=== PATIENT | female | born 2000 | race Hispanic/Latino ===

== ENCOUNTER 2024-02-13 12:36 | Emergency (ER) | payer OTHER ==
[2024-02-13 13:26] LABS: Absolute Eosinophils 0.1 K/uL (0-0.5); Absolute Lymphocytes (CBC) 2.3 K/uL (0.7-4.9); Absolute Monocytes 0.8 K/uL (0.1-1.3); Absolute Neutrophil 10.5 K/uL (1.8-8.0); Basophils % 0.3 % (0-1.3); Eosinophils % 0.7 % (0-4.4); Hematocrit 35.1 % (36.0-45.0); Hemoglobin 11.6 g/dL (12.0-15.0); Lymphocytes % 16.9 % (15.3-44.8); MCH 28.7 pg (27.0-35.0); MCV 86.8 fL (80-100); MPV 7.7 fL (7.6-11.3); Monocytes % 5.7 % (3.3-12.3); Neutrophils % 76.4 % (41.7-73.7); Nucleated Red Blood Cells % 0.1 % (0-0); Platelets 446 thou/uL (152-406); RBC Red Blood Cell Count 4.04 M/uL (3.86-4.86); Red Cell Distribution Width 13.2 % (12.1-15.2)
[2024-02-13 13:31] LABS: Specific Gravity 1.007 (1.005-1.030); Urine Bacteria None Seen /HPF (<20); Urine Bilirubin NEGATIVE (Negative); Urine Blood Negative (Negative); Urine Clarity Turbid (Clear); Urine Color Light-Yellow (Yellow); Urine Crystals Unidentified Few /HPF (None Seen); Urine Culture Reflex Order NOT NEEDED; Urine Glucose NEGATIVE (Negative); Urine Ketones NEGATIVE (Negative); Urine Microscopic Reflex YN ORDER UMIC; Urine Nitrite NEGATIVE (Negative); Urine Protein NEGATIVE (Negative); Urine RBC <5 /HPF (None Seen); Urine Urobilinogen Normal (Normal); Urine WBC <5 /HPF (<5); Urine pH 6.5 (5.0-7.0)
[2024-02-13 13:41] LABS: Albumin 2.3 g/dL (3.4-5.0); Albumin/Globulin Ratio 0.5 (1.1-1.8); Anion Gap 10.5 mEq/L (5.0-15.0); Bilirubin Total 0.3 mg/dL (0.2-1.0); Globulin 4.7 g/dL (2.3-3.5); Potassium 3.5 mEq/L (3.5-5.1)
[2024-02-13] MEDS ORDERED: NA CHLORIDE 0.9% 1,000 ML ONE (13:41)
[2024-02-13] MEDS ORDERED: ONDANSETRON 4 MG/2 ML VIAL ONE (13:41)
--- NOTE | 2024-02-13 14:16 | RAD REPORT ---
EXAM DESCRIPTION: US - Abdomen Exam Limited - 02/13/2024 1:41 pm CLINICAL HISTORY: ABD PAIN COMPARISON: <Comparisons> FINDINGS: The gallbladder demonstrates multiple shadowing stones. No pericholecystic fluid or gallbl adder wall thickening. The common bile duct is normal measuring 3-4 mm. The liver demonstrates no findings of intrahepatic biliary dilatation. IMPRESSION: Cholelithiasis.
--- NOTE | 2024-02-13 14:44 | EDPHYS ---
Physician Documentation [facility] Name: Ritesh Guerrero Age: 23 yrs Sex: Female : 2000 Arrival Date: 02/13/2024 Time: 12:36 Bed 1 Private MD: JO ANN Physician Dewey Conklin HPI: 02/12 14:37 This 23 yrs old Female presents to ER via Ambulatory with complaints of jeannette Abdominal Pain, [id number]. 14:37 The patient presents with abdominal pain abdominal distention in the epigastric area, jeannette in the upper abdomen. Onset: The symptoms/episode began/occurred just prior to arrival, this morning. The patient presents to the emergency department with abdominal pain, of the epigastric area. The estimated gestational age is 33 weeks. course: care: at a clinic. Previous pregnancies: in previous pregnancies patient has had vaginal delivery. Associated signs and symptoms: The patient has no apparent associated signs or symptoms. The symptoms do not radiate. 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 - Infectious Disease History:: Denies. - Social history:: Smoking status: Patient denies any tobacco usage or history of. - Family history:: not pertinent. ROS: 14:37 Constitutional: Negative for fever, chills, and weight loss, Eyes: Negative for injury, jeannette pain, redness, and discharge, ENT: Negative for injury, pain, and discharge, Neck: Negative for injury, pain, and swelling, Cardiovascular: Negative for chest pain, palpitations, and edema, Respiratory: Negative for shortness of breath, cough, wheezing, and pleuritic chest pain, Back: Negative for injury and pain, : Negative for injury, bleeding, discharge, and swelling, MS/Extremity: Negative for injury and deformity, Skin: Negative for injury, rash, and discoloration, Neuro: Negative for headache, weakness, numbness, tingling, and seizure, Psych: Negative for depression, anxiety, suicide ideation, homicidal ideation, and hallucinations, Allergy/Immunology: Negative for hives, rash, and allergies, Endocrine: Negative for neck swelling, polydipsia, polyuria, polyphagia, and marked weight changes, Hematologic/Lymphatic: Negative for swollen nodes, abnormal bleeding, and unusual bruising, 14:37 Abdomen/GI: Positive for abdominal pain, abdominal cramps, Exam: 14:37 Constitutional: This is a well developed, well nourished patient who is awake, alert, jeannette and in no acute distress. Head/Face: Normocephalic, atraumatic. Eyes: Pupils equal round and reactive to light, extra-ocular motions intact. Lids and lashes normal. Conjunctiva and sclera are non-icteric and not injected. Cornea within normal limits. Periorbital areas with no swelling, redness, or edema. ENT: Nares patent. No nasal discharge, no septal abnormalities noted. Tympanic membranes are normal and external auditory canals are clear. Oropharynx with no redness, swelling, or masses, exudates, or evidence of obstruction, uvula midline. Mucous membranes moist. Neck: Trachea midline, no thyromegaly or masses palpated, and no cervical lymphadenopathy. Supple, full range of motion without nuchal rigidity, or vertebral point tenderness. No Meningismus. Chest/axilla: Normal chest wall appearance and motion. Nontender with no deformity. No lesions are appreciated. Cardiovascular: Regular rate and rhythm with a normal S1 and S2. No gallops, murmurs, or rubs. Normal PMI, no JVD. No pulse deficits. Respiratory: Lungs have equal breath sounds bilaterally, clear to auscultation and percussion. No rales, rhonchi or wheezes noted. No increased work of breathing, no retractions or nasal flaring. Abdomen/GI: Soft, non-tender, with normal bowel sounds. No distension or tympany. No guarding or rebound. No evidence of tenderness throughout. Back: No spinal tenderness. No costovertebral tenderness. Full range of motion. Skin: Warm, dry with normal turgor. Normal color with no rashes, no lesions, and no evidence of cellulitis. MS/ Extremity: Pulses equal, no cyanosis. Neurovascular intact. Full, normal range of motion. Neuro: Awake and alert, GCS 15, oriented to person, place, time, and situation. Cranial nerves II-XII grossly intact. Motor strength 5/5 in all extremities. Sensory grossly intact. Cerebellar exam normal. Normal gait. Psych: Awake, alert, with orientation to person, place and time. Behavior, mood, and affect are within normal limits. 14:37 Abdomen/GI: Inspection: gravid appearance, is noted, Bowel sounds: normal, Palpation: mild abdominal tenderness, in the epigastric area, Liver: no appreciated palpable abnormalities, Hernia: not appreciated, Vital Signs: 12:48 BP 143 / 76; Pulse 90; Resp 17; Temp 97.3; Pulse Ox 97% ; Weight 70.76 kg; Height 5 ft. ll1 3 in. ; Pain 8/10; 13:55 BP 127 / 82; Pulse 86; Resp 18; Pulse Ox 98% on R/A; ph 15:05 BP 112 / 48; Pulse 78; Resp 16; Temp 98.2(TE); Pulse Ox 100% on R/A; Pain 0/10; ph 12:48 Body Mass Index 27.63 (70.76 kg, 160.02 cm) ll1 12:48 Pain Scale: Adult ll1 15:05 Pain Scale: Adult ph MDM: 12:43 Patient medically screened. jeannette 14:40 Differential diagnosis: cholecystitis, Cholelithiasis, gastritis, non-specific abd jeannette pain, pancreatitis, Peptic Ulcer Disease, Pyelonephritis, urinary tract infection. Data reviewed: vital signs, nurses notes, lab test result(s), radiologic studies, ultrasound. Consideration of Admission/Observation Escalation of care including admission/observation considered. I considered the following discharge prescriptions or medication management in the emergency department Medications were administered in the Emergency Department. See MAR. Independent interpretation of the following test(s) in the Emergency Department Radiology Department Ultrasound: My interpretation is ob/ gallstones. Test considered but Not performed: MRI: no mrcp. Historians other than the Patient: Spouse/Significant Other: well informed. Care significantly affected by the following chronic conditions: none. 02/12 12:45 Order name: CBC with Diff; Complete Time: 14:03 [facility] 02/12 12:45 Order name: Comprehensive Metabolic Panel; Complete Time: 14:03 [facility] 02/12 12:45 Order name: Urinalysis w/ reflexes; Complete Time: 14:03 [facility] 02/12 12:53 Order name: Lipase; Complete Time: 14:03 [facility] 02/12 12:53 Order name: Abo/rh Typing; Complete Time: 14:03 [facility] 02/12 12:45 Order name: US OB Limited [facility] 02/12 12:53 Order name: US Abdomen Limited; Complete Time: 14:44 jeannette Administered Medications: 13:53 Drug: NS 0.9% IV 1000 ml IV at 1 bolus Per protocol; 1000 mL bolus Route: IV; Rate: 1 ph bolus; Site: right antecubital; 15:14 Follow up: Response: No adverse reaction; IV Status: Completed infusion; IV Intake: ph 1000ml 13:53 Drug: Ondansetron IVP 4 mg IVP once; over 2 minutes Route: IVP; Site: right antecubital;ph 15:14 Follow up: Response: No adverse reaction; Nausea is decreased ph Disposition Summary: 02/13/24 14:43 Discharge Ordered Notes: Location: Home jeannette Problem: new jeannette Symptoms: have improved jeannette Condition: Stable jeannette Diagnosis - Epigastric abdominal tenderness jeannette - Other cholelithiasis without obstruction jeannette - 33 weeks gestation of jeannette - Elevated white blood cell count jeannette Followup: jeannette - With: Private Physician - When: 2 - 3 days - Reason: Recheck today's complaints, Continuance of care, Re-evaluation by your physician Followup: jeannette - With: Ravinder Guerrero MD - When: 2 - 3 days - Reason: Recheck today's complaints, Re-evaluation by your physician Discharge Instructions: - Discharge Summary Sheet jeannette - Abdominal Pain, Adult jeannette - Care jeannette - Cholelithiasis jeannette - Gallbladder Eating Plan jeannette Forms: - Medication Reconciliation Form jeannette - Antibiotic Education jeannette - Prescription Opioid Use jeannette - Patient Portal Instructions jeannette - Leadership Thank You Letter jeannette Signatures: Dispatcher [employer] Dewey Blankenship MD MD cha Hall, Patricia, RN RN Brooks Madison RN RN ll1
--- NOTE | 2024-02-13 14:44 | ER ---
Nurse's Notes [facility] Name: Ritesh Guerrero Age: 23 yrs Sex: Female : 2000 Arrival Date: 02/13/2024 Time: 12:36 Bed 1 Private MD: Diagnosis: Epigastric abdominal tenderness;Other cholelithiasis without obstruction;33 weeks gestation of ;Elevated white blood cell count Presentation: 02/12 12:48 Chief complaint: Patient states: Upper abdominal pain with nausea and AGGARWAL began today. ll1 G2, P1 33 weeks . Coronavirus screen: Client denies travel out of the [place] in the last 14 days. cough unrelated to allergies, Client presents with at least one sign or symptom that may indicate coronavirus-19. Standard/surgical mask placed on the client. Ebola Screen: Patient denies travel to an Ebola-affected area in the 21 days before illness onset. Initial Sepsis Screen: Does the patient meet any 2 criteria? No. Patient's initial sepsis screen is negative. Does the patient have a suspected source of infection? No. Patient's initial sepsis screen is negative. Risk Assessment: Do you want to hurt yourself or someone else? Patient reports no desire to harm self or others. Onset of symptoms was February 13, 2024. 12:48 Method Of Arrival: Ambulatory ll1 12:48 Acuity: DIANA 3 ll1 Triage Assessment: 12:49 General: Appears uncomfortable, Behavior is calm, cooperative, appropriate for age. ll1 Pain: Complains of pain in abdomen Pain currently is 8 out of 10 on a pain scale. Neuro: Reports headache. GI: Reports upper abdominal pain, nausea. 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 - Infectious Disease History:: Denies. - Social history:: Smoking status: Patient denies any tobacco usage or history of. - Family history:: not pertinent. Screenin:00 [facility] ED Fall Risk Assessment (Adult) History of falling in the last 3 months, cm10 including since admission No falls in past 3 months (0 pts) Confusion or Disorientation No (0 pts) Intoxicated or Sedated No (0 pts) Impaired Gait No (0 pts) Mobility Assist Device Used No (0 pt) Altered Elimination No (0 pt) Score/Fall Risk Level 0 - 2 = Low Risk Oriented to surroundings, Maintained a safe environment, Provided non-skid footwear. Abuse screen: Denies threats or abuse. Denies injuries from another. Nutritional screening: No deficits noted. Tuberculosis screening: No symptoms or risk factors identified. Assessment: 13:54 General: Appears in no apparent distress. comfortable, well groomed, Behavior is calm, ph cooperative, appropriate for age. Pain: Complains of pain in right lower quadrant and left lower quadrant. Neuro: Level of Consciousness is awake, alert, obeys commands, Oriented to person, place, time, situation. Cardiovascular: Capillary refill < 3 seconds in bilateral fingers Patient's skin is warm and dry. Respiratory: Airway is patent Respiratory effort is even, unlabored, Respiratory pattern is regular, symmetrical. GI: Reports lower abdominal pain, nausea, Patient currently denies vomiting. : Reports pain lower quadrant(s) Denies vaginal bleeding. Derm: Skin is pink, warm \T\ dry. 15:17 GI: Bowel sounds present X 4 quads. Abd is soft and non tender. ph Vital Signs: 12:48 BP 143 / 76; Pulse 90; Resp 17; Temp 97.3; Pulse Ox 97% ; Weight 70.76 kg; Height 5 ft. ll1 3 in. ; Pain 8/10; 13:55 BP 127 / 82; Pulse 86; Resp 18; Pulse Ox 98% on R/A; ph 15:05 BP 112 / 48; Pulse 78; Resp 16; Temp 98.2(TE); Pulse Ox 100% on R/A; Pain 0/10; ph 12:48 Body Mass Index 27.63 (70.76 kg, 160.02 cm) ll1 12:48 Pain Scale: Adult ll1 15:05 Pain Scale: Adult ph ED Course: 12:41 Patient arrived in ED. mg5 12:41 Arm band placed on Patient placed in an exam room, on a stretcher. ll1 12:43 Dewey Conklin MD is Attending Physician. [facility] 12:49 Triage completed. ll1 13:03 Initial lab(s) drawn, by ga, sent to lab. Urine collected: clean catch specimen. cm10 Inserted saline lock: 20 gauge in right antecubital area, using aseptic technique. Blood collected. 13:03 Abo/rh Typing Sent. cm10 13:04 Lipase Sent. cm10 13:04 Comprehensive Metabolic Panel Sent. cm10 13:04 CBC with Diff Sent. cm10 13:07 Lorenza Cardenas, RN is Primary Nurse. al5 13:09 Kathy Renee, RN is Primary Nurse. ph 13:26 Patient has correct armband on for positive identification. Placed in gown. Bed in low cm10 position. Call light in reach. Side rails up X2. 13:43 US OB Limited In Process Unspecified. EDMS 13:43 US Abdomen Limited In Process Unspecified. EDMS 14:42 Ravinder Guerrero MD is Referral Physician. jeannette 15:01 No provider procedures requiring assistance completed. IV discontinued, intact, ph bleeding controlled, No redness/swelling at site. Pressure dressing applied. 15:17 Provided Education on: ed process, call monreal. ph Administered Medications: 13:53 Drug: NS 0.9% IV 1000 ml IV at 1 bolus Per protocol; 1000 mL bolus Route: IV; Rate: 1 ph bolus; Site: right antecubital; 15:14 Follow up: Response: No adverse reaction; IV Status: Completed infusion; IV Intake: ph 1000ml 13:53 Drug: Ondansetron IVP 4 mg IVP once; over 2 minutes Route: IVP; Site: right antecubital;ph 15:14 Follow up: Response: No adverse reaction; Nausea is decreased ph Medication: 13:53 VIS not applicable for this client. ph Intake: 15:14 IV: 1000ml; Total: 1000ml. ph Outcome: 14:43 Discharge ordered by . jeannette 15:08 Discharged to home ambulatory, with family, ph 15:08 Condition: stable 15:08 Discharge instructions given to patient, Instructed on discharge instructions, follow up and referral plans. Demonstrated understanding of instructions, follow-up care, 15:18 Patient left the ED. ph Signatures: Dispatcher [employer] Dewey Blankenship MD MD cha Hall, Patricia, RN RN ph Brooks Strickland RN RN 1 Radha Guerrero RN RN cm10 Yahaira Solano mg5 Lorenza Cardenas, RN RN al5
--- NOTE | 2024-02-13 14:46 | RAD REPORT ---
EXAM DESCRIPTION: US - OB Limited - 02/13/2024 1:41 pm CLINICAL HISTORY: ABD CRAMPING, Pelvic pain, limited assessment COMPARISON: <Comparisons> FINDINGS: A single cephalic presenting gestation is identified. Heart rate normal. Estimated gestational age is 33 weeks 4 days, SOHA 03/29/2024. Cervix is closed measuring 4 cm. Placenta is posterior without evidence of abruption or previa. Caryn l amniotic fluid volume. IMPRESSION: Limited examination as detailed without acute finding.
[2024-02-13 15:46] VITALS: BP 112/48; TEMP 98.2; O2SAT 100
== END 2024-02-13 15:18 | disposition home or self-care (01) ==
LOC: ER 12:36
DX: O99.613 Diseases of the digestive system complicating pregnancy, third trimester (principal); K80.80 Other cholelithiasis without obstruction; D72.829 Elevated white blood cell count, unspecified; Z3A.33 33 weeks gestation of pregnancy
CPT/HCPCS: 96361; 85025; 81001; 36415; 86900; 86901; 83690; 80053; 76705; 76815; 96374; 99284; J2405; J7030